=== PATIENT | male | born 1955 | race Caucasian/White ===

== ENCOUNTER 2018-01-04 10:43 | Emergency (ER) | payer OTHER ==
[~2018-01-04] VITALS: Ht 182.9 cm; Wt 63.5 kg
[2018-01-04] MEDS ORDERED: SODIUM CHLORIDE 0.9% 1000ML 1,000 ML IV STA (11:58)
[2018-01-04] MEDS ORDERED: KETOROLAC TROMETHAMINE 30 MG/ML VIAL IV STA (12:24)
[2018-01-04] MEDS ORDERED: METOCLOPRAMIDE HCL 10 MG/2ML VIAL IV ONE (12:30)
[2018-01-04] MEDS ORDERED: DIPHENHYDRAMINE HCL INJ 50 MG/ML VIAL IV ONE (12:30)
--- NOTE | 2018-01-04 13:20 | Diagnostic Imaging Report ---
PROCEDURE:CHEST SINGLE (PORTABLE) TECHNIQUE:Portable AP chest INDICATION:Headaches; fever COMPARISON:None. FINDINGS: Questionable small left upper lobe 7 mm nodule. It looked otherwise clear. No pleural effusion.. Slightly elevated manuelito bilaterally. Intact skeleton. CONCLUSION: 1. Questionable subcentimeter left upper lobe nodules. Consider nonemergent low dose pulmonary nodule CT chest for further evaluation. 2. Mild hyperinflation suggesting COPD. Dictated by: Fernando Bautista M.D. on 01/04/2018 at 13:21 Electronically approved by: Fernando Bautista M.D. on 01/04/2018 at 13:21
--- NOTE | 2018-01-04 13:40 | Diagnostic Imaging Report ---
History:Migraine Comparison studies: CT head 10/06/2013 Technique: Axial images were obtained from the skull base to the vertex. Coronal and sagittal reconstructions obtained from the axial data. Findings: Scalp/skull: No abnormalities. No fractures, blastic or lytic lesions. Extra-axial spaces: No masses. No fluid collections. Brain sulci: Appropriate for age. Ventricles: Normal in size and configuration. No hydrocephalus. Parenchyma: No abnormal densities. Stable configuration of the corpus callosum with mild thinning of the posterior body. No masses, hemorrhage, acute or chronic cortical vascular insults. Sellar/suprasellar region: No abnormalities Craniocervical junction: Patent foramen magnum. No Chiari one malformation. IMPRESSION: No acute abnormalities . Signed by: DR Igor Meade M.D. on 01/04/2018 1:36 PM
[2018-01-04 15:55] LABS: BASOPHILS # (AUTO) 0.1 (0.0-0.1); BASOPHILS % 0.7 % (0.0-1.0); EOSINOPHILS # (AUTO) 0.1 (0.0-0.4); HEMATOCRIT 40.8 % (38.2-49.6); HEMOGLOBIN 14.1 g/dL (14.0-18.0); LYMPHOCYTES # (AUTO) 1.6 (1.0-3.2); LYMPHOCYTES % 13.2 % (18.0-39.1); MEAN CORPUSCULAR HEMOGLOBIN 31.7 pg (28-32); MEAN CORPUSCULAR HGB CONC 34.6 g/dL (31-35); MEAN CORPUSCULAR VOLUME 91.7 fL (81-99); MONOCYTES # (AUTO) 1.7 (0.2-0.8); MONOCYTES % 13.3 % (4.4-11.3); NEUTROPHILS # (AUTO) 8.9 (2.1-6.9); NEUTROPHILS % 71.6 % (38.7-80.0); PLATELET COUNT 315 x10e3/uL (140-360); RED BLOOD COUNT 4.45 x10e6/uL (4.3-5.7); RED CELL DISTRIBUTION WIDTH 12.9 % (11.7-14.4)
[2018-01-04 16:15] LABS: BILIRUBIN,URINE NEGATIVE (NEGATIVE); CLARITY,URINE CLOUDY (CLEAR); COLOR,URINE YELLOW (YELLOW); KETONES,URINE NEGATIVE (NEGATIVE); LEUKOCYTE ESTERASE ,URINE 2+ (NEGATIVE); NITRITE,URINE NEGATIVE (NEGATIVE); URINE UROBILINOGEN 0.2 mg/dL (0.2 - 1)
[2018-01-04 16:19] LABS: PROTEIN,URINE DIPSTICK 2+ (NEGATIVE)
[2018-01-04 16:22] LABS: ALANINE AMINOTRANSFERASE 50 IU/L (0-55); ALBUMIN 3.5 g/dL (3.5-5.0); ALBUMIN/GLOBULIN RATIO 0.9 (0.8-2.0); ALKALINE PHOSPHATASE 90 IU/L (40-150); ANION GAP 13.9 mmol/L (8-16); BLOOD UREA NITROGEN 17 mg/dL (7-26); BUN/CREATININE RATIO 16 (6-25); CALCIUM 9.3 mg/dL (8.4-10.2); CARBON DIOXIDE 27 mmol/L (22-29); CHLORIDE 100 mmol/L (98-107); CREATININE, SERUM 1.06 mg/dL (0.72-1.25); EST GLOMERULAR FILTRATION RATE > 60 ML/MIN (60-); GLUCOSE 139 mg/dL (74-118); POTASSIUM 3.9 mmol/L (3.5-5.1); SODIUM 137 mmol/L (136-145)
[2018-01-04 16:34] LABS: BACTERIA,URINE MODERATE /HPF; EPITHELIAL CELLS,URINE FEW /LPF; RBC,URINE 21-50 /HPF (0-5)
== END 2018-01-04 17:29 | disposition home or self-care (01) ==
LOC: ER 10:43
DX: G44.89 Other headache syndrome (principal)
CPT/HCPCS: 36415; 70450; 71045; 80053; 81001; 85025; 87400; 99284; J1200; J1885; J2765

== ENCOUNTER 2018-08-14 20:15 | Emergency (ER) | payer OTHER ==
[~2018-08-14] VITALS: Ht 182.9 cm; Wt 63.5 kg
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
[2018-08-15] MEDS ORDERED: KETOROLAC TROMETHAMINE 60 MG/2 ML VIAL ONE (01:36)
[2018-08-15] MEDS ORDERED: TETANUS/DIPHTHERIA TOX ADULT 0.5 ML SYR IM ONE (01:45)
[2018-08-15] MEDS ORDERED: KETOROLAC TROMETHAMINE 60 MG/2 ML VIAL IM ONE (01:45)
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
== END 2018-08-15 02:25 | disposition home or self-care (01) ==
LOC: ER 20:15
DX: S00.81XA Abrasion of other part of head, initial encounter (principal); V18.0XXA Pedal cycle driver injured in noncollision transport accident in nontraffic accident, initial encounter; Y93.55 Activity, bike riding; Y92.410 Unspecified street and highway as the place of occurrence of the external cause; S70.12XA Contusion of left thigh, initial encounter; Z23 Encounter for immunization
CPT/HCPCS: 70450; 73502; 73552; 90471; 90714; 96372; 99284; J1885

== ENCOUNTER 2019-07-14 20:29 | Emergency (ER) | payer OTHER ==
[~2019-07-14] VITALS: Ht 185.4 cm; Wt 65.8 kg
[2019-07-14] MEDS ORDERED: ONDANSETRON HCL INJ 2MG/ML 2ML 2 MG/ML VIAL IV STA (21:04)
[2019-07-14] MEDS ORDERED: ONDANSETRON HCL INJ 2MG/ML 2ML 2 MG/ML VIAL ONE (21:07)
[2019-07-14] MEDS ORDERED: SODIUM CHLORIDE 0.9% 1000ML 1,000 ML ONE (21:07)
[2019-07-14] MEDS ORDERED: SODIUM CHLORIDE 0.9% 1000ML 1,000 ML IV SCH (21:15)
[2019-07-14] MEDS ORDERED: LEVOFLOXACIN 750MG/D5W 150ML 150 ML IV ONE ×2 (21:15→21:18)
== END 2019-07-14 23:00 | disposition home or self-care (01) ==
LOC: FSED 20:29
DX: R30.0 Dysuria (principal); N10 Acute pyelonephritis; N18.9 Chronic kidney disease, unspecified
CPT/HCPCS: 80053; 81003; 85025; 87040; 87086; 87186; 99283; J2405; J7030

== ENCOUNTER 2021-02-09 09:27 | Emergency (ER) | payer OTHER ==
[~2021-02-09] VITALS: Ht 185.4 cm; Wt 65.8 kg
[2021-02-09] MEDS ORDERED: KETOROLAC TROMETHAMINE 30 MG/ML VIAL IM STA (09:59)
[2021-02-09] MEDS ORDERED: METOCLOPRAMIDE HCL 10 MG/2ML VIAL IM ONE (10:00)
[2021-02-09] MEDS ORDERED: DIPHENHYDRAMINE HCL 25 MG CAP PO ONE (10:00)
[2021-02-09] MEDS ORDERED: CEFDINIR300 MG PO (21:48)
== END 2021-02-09 11:03 | disposition home or self-care (01) ==
LOC: ER 10:11
DX: G43.909 Migraine, unspecified, not intractable, without status migrainosus (principal); E78.5 Hyperlipidemia, unspecified; F41.9 Anxiety disorder, unspecified
CPT/HCPCS: 99283; J1885; J2765

== ENCOUNTER 2021-02-09 18:27 | Emergency (ER) | payer OTHER ==
[~2021-02-09] VITALS: Ht 185.4 cm; Wt 65.8 kg
[2021-02-09 20:56] LABS: CLARITY,URINE SL CLOUDY (CLEAR); COLOR,URINE YELLOW (YELLOW); LEUKOCYTE ESTERASE ,URINE TRACE (NEGATIVE)
[2021-02-09 20:57] LABS: KETONES,URINE NEGATIVE (NEGATIVE); NITRITE,URINE NEGATIVE (NEGATIVE); PROTEIN,URINE DIPSTICK 1+ (NEGATIVE); URINE UROBILINOGEN 0.2 mg/dL (0.2 - 1)
[2021-02-09 21:09] LABS: WBC,URINE (MAN) 0-5 /HPF (0-5)
[2021-02-09 21:10] LABS: BACTERIA,URINE MANY /HPF
[2021-02-09] MEDS ORDERED: CEFDINIR300 MG PO (21:48)
== END 2021-02-09 21:54 | disposition home or self-care (01) ==
LOC: ER 19:22
DX: R30.0 Dysuria (principal); N39.0 Urinary tract infection, site not specified; E78.5 Hyperlipidemia, unspecified; F41.9 Anxiety disorder, unspecified
CPT/HCPCS: 81001; 87086; 87186; 99283